=== PATIENT | male | born 1995 | race Caucasian/White ===

== ENCOUNTER 2018-04-30 23:52 | Emergency (ER) | payer SELFPAY ==
[~2018-04-30] VITALS: Ht 162.6 cm; Wt 69.0 kg
[2018-04-30 23:56] VITALS: Ht 162.6 cm; Wt 69.0 kg
[2018-05-01] MEDS ORDERED: KETOROLAC 30 MG INJ IV STA (00:50)
[2018-05-01] MEDS ORDERED: SOD CHLORIDE 0.9% 1,000 ML IV STA (00:50)
[2018-05-01] MEDS ORDERED: SOD CHLORIDE 0.9% 100 ML ONE (02:21)
[2018-05-01] MEDS ORDERED: IOHEXOL 300MG/ML 150 ML BTL ONE (02:21)
--- NOTE | 2018-05-01 02:58 | ERD ---
ER Documentation Chief Complaint Chief Complaint PAROIDITIS; REFFERED BY PMD HPI 22-year-old male who presents the emergency room with less than 12-24 hours of swelling to the left submandibular gland. The patient notes significant swelling and some tenderness to the gland on the left side that is worse with elevation. He describes some mild discomfort with swallowing. He is recently being treated for acute bronchitis with oral antibiotics. He denies any fevers or chills. No injury. ROS All systems reviewed and are negative except as per history of present illness. Medications Home Meds Active Scripts Ibuprofen* (Motrin*) 800 Mg Tab, 800 MG PO Q6H PRN for PAIN AND OR ELEVATED TEMP, #30 TAB Prov:GAIL ROOT MD 05/01/18 Amoxicillin/Potassium Clav (Amox-Clav 875-125 mg Tablet) 875-125 mg Tab, 1 TAB PO BID for 7 Days, #14 TAB Prov:GAIL ROOT MD 05/01/18 Allergies Allergies: Coded Allergies: No Known Allergy (Unverified , 05/01/18) PMhx/Soc Hx Respiratory Disorders: Yes (bronchitis) Hx Alcohol Use: No Hx Substance Use: No Hx Tobacco Use: No Smoking Status: Never smoker FmHx Family History: No diabetes Physical Exam Vitals Vital Signs Date Temp Pulse Resp B/P (MAP) Pulse Ox O2 O2 Flow FiO2 Time Delivery Rate 04/30/18 97.6 75 19 133/77 99 23:56 (95) Physical Exam General: Well developed, well nourished, no acute distress Head: Normocephalic, atraumatic. Eyes: Pupils equally reactive, EOM intact ENT: Patient has swelling and tenderness to the submandibular gland on the left side. Soft submental spaces. Tolerating secretions. No drooling and no strid or Neck: Supple, no lymphadenopathy Respiratory: Lungs clear bilaterally, no distress Cardiovascular: RRR, no murmurs, rubs, or gallops Abdominal: Soft, non-tender, non-distended, no peritoneal signs : Deferred MSK: No edema, no unilateral swelling, 5/5 strength Neurologic: Alert and oriented, moving all extremities, normal speech, no focal weakness, no cerebellar signs Skin: No rash Psych: Normal mood Result Diagram: 05/01/186 05/01/186 Results 24 hrs Laboratory Tests Test 05/01/18 00:56 White Blood Count 15.5 10^3/ul Red Blood Count 5.23 10^6/ul Hemoglobin 15.1 g/dl Hematocrit 45.3 % Mean Corpuscular Volume 86.6 fl Mean Corpuscular Hemoglobin 28.9 pg Mean Corpuscular Hemoglobin Concent 33.3 g/dl Red Cell Distribution Width 12.5 % Platelet Count 342 10^3/UL Mean Platelet Volume 9.0 fl Immature Granulocytes % 2.100 % Neutrophils % 78.0 % Lymphocytes % 10.3 % Monocytes % 9.0 % Eosinophils % 0.1 % Basophils % 0.5 % Nucleated Red Blood Cells % 0.0 /100WBC Immature Granulocytes # 0.330 10^3/ul Neutrophils # 12.1 10^3/ul Lymphocytes # 1.6 10^3/ul Monocytes # 1.4 10^3/ul Eosinophils # 0.0 10^3/ul Basophils # 0.1 10^3/ul Nucleated Red Blood Cells # 0.0 10^3/ul Sodium Level 140 mmol/L Potassium Level 4.2 mmol/L Chloride Level 102 mmol/L Carbon Dioxide Level 27 mmol/L Anion Gap 11 Blood Urea Nitrogen 14 mg/dl Creatinine 0.93 mg/dl Est Glomerular Filtrat Rate mL/min > 60 mL/min Glucose Level 121 mg/dl Calcium Level 9.9 mg/dl Current Medications Medications Dose Sig/Tommie Start Time Status Last (Trade) Ordered Route PRN Stop Time Admin Dose Reason Admin Sodium 1,000 ml @ Q1H STAT 05/01/18 DC 05/01/18 Chloride 1,000 mls/hr IV 00:50 01:04 05/01/18 01:49 Ketorolac 30 mg ONCE STAT 05/01/18 DC 05/01/18 Tromethamine IV 00:50 01:49 (Toradol) 05/01/18 00:52 Sodium 100 ml @ ud STK-MED 05/01/18 DC 05/01/18 Chloride ONCE .ROUTE 02:21 02:36 05/01/18 02:22 Iohexol 150 ml STK-MED 05/01/18 DC 05/01/18 (Omnipaque ONCE .ROUTE 02:21 02:36 300mg/ ml) 05/01/18 02:22 Ampicillin 100 ml @ ONCE ONCE 05/01/18 Sodium/ 100 mls/hr IVPB 04:00 Sulbactam 05/01/18 04:59 Sodium 10 mg ONCE ONCE 05/01/18 Dexamethasone IV 04:00 (Decadron) 05/01/18 04:01 Procedures/MDM EKG, MONITORS, & DIAGNOSTIC IMAGING: CT neck IMPRESSION: 1. Findings consistent with left submandibular sialadenitis. Asymmetric enhancement and edema throughout the gland and associated stranding throughout the surrounding soft tissues. No visible obstructing ductal stone. 2. Mildly enlarged reactive cervical lymph nodes. RPTAT: [facility] LAB INTERPRETATION: I reviewed the laboratory testing and it shows mild leukocytosis MEDICAL DECISION MAKING: Patient's exam is consistent with swelling of the left submandibular gland. Consider possible sialolithiasis, sialoadenitis, less likely bacterial infection. Low concern for deep space infection given location and rapidity CT imaging would be appropriate. ER COURSE: * CT shows evidence of sialoadenitis without sialolithiasis * The patient will be given a dose of Unasyn, Decadron in the emergency room setting and discharged on Augmentin. * Patient is currently taking azithromycin for presumed bronchitis. The patient can discontinue this medication. I do not believe he has evidence of commune acquired pneumonia. Patient's bronchitis if anything is likely viral. * The patient has no evidence of airway involvement and can be safely managed on an outpatient basis with primary care follow-up and return precautions. CONSULTATION: [None] DISPOSITION PLAN: The patient does not have an identifiable emergent medical condition that warrants inpatient hospitalization at this time. The patient is deemed safe for discharge with outpatient follow-up. We discussed follow up with the patient's primary care doctor within 24 to 48 hours as needed. We also discussed return to the emergency room for worsening symptoms or worsening condition. Outpatient referral: ENT as needed Discharge Medications: Motrin, Augmentin Departure Diagnosis: Primary Impression: Acute sialoadenitis Condition: Stable GAIL ROOT MD May 01, 2018 02:57
[2018-05-01] MEDS ORDERED: AMOX1TAB10 PO (03:51)
[2018-05-01] MEDS ORDERED: IBUP800T48 PO (03:51)
[2018-05-01] MEDS ORDERED: AMPICILLIN/SULB 3 GM/NS (PMX) 100 ML IVPB ONE (04:00)
[2018-05-01] MEDS ORDERED: DEXAMETHASONE 10 MG/ML 1 ML INJ IV ONE (04:00)
[2018-05-01 04:32] VITALS: BP 117/69; PULSE 62; RESP 18
== END 2018-05-01 04:34 | disposition home or self-care (01) ==
LOC: E/R 23:52
DX: K11.21 Acute sialoadenitis (principal)
CPT/HCPCS: 36415; 70491; 80048; 85025; 96374; 96375; 99285; J0295; J1100; J1885; J7030; Q9967